=== PATIENT | male | born 1945 | race Two or more races ===

== ENCOUNTER 2020-10-24 11:50 | Emergency (ER) | payer OTHER ==
[~2020-10-24] VITALS: Ht 152.4 cm; Wt 99.8 kg
== END 2020-10-24 14:49 | disposition home or self-care (01) ==
LOC: ER 11:50
DX: R07.89 Other chest pain (principal)

== ENCOUNTER 2021-01-09 11:10 | Emergency (ER) | payer OTHER ==
[~2021-01-09] VITALS: Ht 172.7 cm; Wt 90.7 kg
[2021-01-09] MEDS ORDERED: CELEBREX100 MG PO (13:29)
[2021-01-09] MEDS ORDERED: VASOTEC2.5 MG PO (13:29)
== END 2021-01-09 13:35 | disposition home or self-care (01) ==
LOC: ER 11:10
DX: M13.88 Other specified arthritis, other site (principal); M62.838 Other muscle spasm; R51.9 Headache, unspecified

== ENCOUNTER 2022-09-15 11:28 | Emergency (ER) | payer OTHER ==
[~2022-09-15] VITALS: Ht 172.7 cm; Wt 86.2 kg
[~2022-09-15 11:28] MED LIST: CELEBREX100 MG PO; VASOTEC2.5 MG PO
[2022-09-15] MEDS ORDERED: TAMS0.4C (12:02)
[2022-09-15] MEDS ORDERED: COZAAR50 MG (12:02)
[2022-09-15] MEDS ORDERED: [UNRECOGNIZED DRUG - REMARK] (12:08)
[2022-09-15] MEDS ORDERED: ADULT LOW DOSE81 M1 (12:08)
== END 2022-09-15 19:36 | disposition home or self-care (01) ==
LOC: ER 11:28
DX: R07.89 Other chest pain (principal); I10 Essential (primary) hypertension

== ENCOUNTER 2022-11-10 07:05 | Outpatient (CLI) | payer OTHER ==
[~2022-11-10 07:05] MED LIST changes: +ADULT LOW DOSE81 M1; +COZAAR50 MG; +TAMS0.4C; +[UNRECOGNIZED DRUG - REMARK]
== END 2022-11-10 07:06 | disposition home or self-care (01) ==
LOC: NUCLEAR 07:05
PROVIDERS: ATTEND Internal Medicine
DX: I11.9 Hypertensive heart disease without heart failure (principal); I25.118 Atherosclerotic heart disease of native coronary artery with other forms of angina pectoris; E78.2 Mixed hyperlipidemia; R07.9 Chest pain, unspecified; R06.00 Dyspnea, unspecified
CPT/HCPCS: 78452; 93017; 93306; A9500; J0153

== ENCOUNTER 2023-10-31 06:43 | Emergency (ER) | payer OTHER ==
[~2023-10-31] VITALS: Ht 175.3 cm; Wt 86.2 kg
[2023-10-31] MEDS ORDERED: LOPRESSOR25 MG PO (07:18)
[2023-10-31] MEDS ORDERED: CEFTRIAXONE SODIUM 1,000 MG VIAL IM STA (07:39)
[2023-10-31] MEDS ORDERED: CEFTRIAXONE SODIUM 1,000 MG VIAL ONE (07:46)
[2023-10-31 08:35] LABS: HEMATOCRIT 39.1 % (39.0-48.0); HEMOGLOBIN 13.3 g/dL (13-16.00); MEAN CELL VOLUME 91.4 fL (80.0-100.00); MEAN CORPUSCULAR HEMOGLOBIN 31.1 pg (27.00-32.0); PLATELET COUNT 133 K/uL (150-450); RED BLOOD COUNT 4.27 M/uL (4.00-6.00); RED CELL DISTRIBUTION WIDTH 14.1 % (11.5-14.5)
[2023-10-31 09:08] LABS: ALBUMIN 3.7 gm/dL (3.4-5.0); BILIRUBIN TOTAL 0.41 mg/dL (0.3-1.2); CALCIUM 9.2 mg/dL (8.5-10.1); CREATININE SERUM 0.84 mg/dL (0.70-1.30); GFR 88.84; GLOBULINA 3.6 G/DL (2.4-3.5); POTASSIUM 3.61 mEq/L (3.5-5.1); TOTAL PROTEIN 7.3 gm/dL (6.4-8.2)
== END 2023-10-31 12:19 | disposition home or self-care (01) ==
LOC: ER 06:44
PROVIDERS: General Practice
DX: L97.929 Non-pressure chronic ulcer of unspecified part of left lower leg with unspecified severity (principal); L03.116 Cellulitis of left lower limb; I10 Essential (primary) hypertension
CPT/HCPCS: 36415; 96372; 99282; J0696

== ENCOUNTER 2024-02-17 10:53 | Emergency (ER) | payer OTHER ==
[~2024-02-17] VITALS: Ht 172.7 cm; Wt 87.1 kg
[~2024-02-17 10:53] MED LIST changes: +LOPRESSOR25 MG PO
[2024-02-17] MEDS ORDERED: CEFTRIAXONE SODIUM 1,000 MG VIAL IV STA (12:26)
[2024-02-17] MEDS ORDERED: CEFTRIAXONE SODIUM 1,000 MG VIAL ONE (12:29)
== END 2024-02-17 12:42 | disposition home or self-care (01) ==
LOC: ER 10:55
DX: I83.009 Varicose veins of unspecified lower extremity with ulcer of unspecified site (principal)
CPT/HCPCS: 96365; 99282; J0696

== ENCOUNTER 2024-02-18 10:22 | Inpatient (IN) | payer OTHER ==
[~2024-02-18] VITALS: Ht 172.7 cm; Wt 72.6 kg
--- NOTE | 2024-02-18 10:57 | NUR ---
PTE ALERTA Y ORIENTADO X3 EN COMPANIA DE FAMILIAR EL CUAL REFIERE VENIR A CAUSA DE QUE RAHMAN ESTADO PRESENTANDO ULCERA EN AREA DE [facility]. SE MIDEN S/V Y SE UBICA.
[2024-02-18] MEDS ORDERED: 0.9 % SODIUM CHLORIDE 1,000 ML IV SCH ×2 (11:15→18:00)
--- NOTE | 2024-02-18 11:22 | NUR ---
PACIENTE EVALUADO POR DR. BUCK QUIEN [place] MED[place], RN KLEIN EDUCA ACERCA DEL MISMO Y REFIERE ENTENDER. SE CANALIZA Y COLECTAN MUESTRAS DE LABORTAORIO MEDIANTE MEDIDAS ASEPTICAS.
[2024-02-18 12:23] LABS: HEMATOCRIT 38.1 % (39.0-48.0); HEMOGLOBIN 12.9 g/dL (13-16.00); MEAN CELL VOLUME 90.7 fL (80.0-100.00); MEAN CORPUSCULAR HEMOGLOBIN 30.6 pg (27.00-32.0); MEAN CORPUSCULAR HGB CONC 33.7 g/dl (32.0-36.0); PLATELET COUNT 137 K/uL (150-450); RED BLOOD COUNT 4.21 M/uL (4.00-6.00); RED CELL DISTRIBUTION WIDTH 13.9 % (11.5-14.5)
[2024-02-18 13:00] LABS: ALBUMIN 3.5 gm/dL (3.4-5.0); BILIRUBIN TOTAL 0.59 mg/dL (0.3-1.2); CALCIUM 8.9 mg/dL (8.5-10.1); CREATININE SERUM 0.95 mg/dL (0.70-1.30); GFR 77.08; GLOBULINA 3.6 G/DL (2.4-3.5); POTASSIUM 3.95 mEq/L (3.5-5.1); TOTAL PROTEIN 7.1 gm/dL (6.4-8.2)
[2024-02-18] MEDS ORDERED: VANCOMYCIN HCL 1,000 MG VIAL IV ONE (13:30)
[2024-02-18] MEDS ORDERED: VANCOMYCIN HCL 1,000 MG VIAL ONE ×2 (13:31→13:36)
--- NOTE | 2024-02-18 15:06 | NUR ---
SE RECIBE PTE ALERTA Y ORIENTADO X3. EN FERNY BAJA CON BARANDAS ELEVADAS POR SEGURIDAD. CANALIZACION PATENTE, NEHEMIAS DE EDEMA Y ERITEMA, RECIBIENDO IV FLUIDS. PEND CONSULTA CON DR ABDULAZIZ MCGOVERN
[2024-02-18] MEDS ORDERED: CEFTRIAXONE SODIUM 2,000 MG in 0.9 % SODIUM CHLORIDE 100 ML IV SCH (18:01)
[2024-02-18] MEDS ORDERED: GABAPENTIN 300 MG CAPSULE PO SCH (18:03)
[2024-02-18] MEDS ORDERED: ACETAMINOPHEN 500 MG GEL..CAP PO PRN (18:15)
[2024-02-18] MEDS ORDERED: CEFTRIAXONE SODIUM 2,000 MG VIAL ONE (20:32)
[2024-02-18 21:07] LABS: PH,URINE 5.5 (5.0-8.0); URINE APPEARANCE Clear; URINE BACTERIA 7.5 uL (0.0-1933); URINE BILIRRUBIN Negative (NEGATIVE); URINE BLOOD Small; URINE COLOR Yellow; URINE GLUCOSE Negative (NEGATIVE); URINE KETONE Negative (NEGATIVE); URINE LEUKOCYTE Negative; URINE NITRATE Negative; URINE PROTEIN Negative (NEGATIVE); URINE RBC 17.7 uL (0.0-20.8); URINE UROBILINOGEN 0.2 E.U./dl
[2024-02-18 21:08] LABS: URINE EPITHELIAL CELLS 0.6 uL (0.0-38.8); URINE WBC 1.5 uL (0.0-23.2)
[2024-02-18 21:14] LABS: INR 1.06; PROTHROMBIN TIME 11.5 SECONDS (9.0-11.5)
[2024-02-19 01:00] VITALS: BP 160/87
[2024-02-19 08:16] VITALS: BP 142/83; O2SAT 96
[2024-02-19] MEDS ORDERED: LOSARTAN POTASSIUM 50 MG TABLET PO SCH (09:00)
[2024-02-19] MEDS ORDERED: FAMOTIDINE/PF 20 MG in 0.9 % SODIUM CHLORIDE 8 ML IV PUSH SCH (09:00)
[2024-02-19] MEDS ORDERED: ENOXAPARIN SODIUM 40 MG/0.4 ML SYRINGE SUBCUTANEO SCH (09:00)
[2024-02-19] MEDS ORDERED: VANCOMYCIN HCL 1,000 MG VIAL IV SCH ×2 (09:00→21:00)
[2024-02-19 11:10] VITALS: BP 153/84; O2SAT 99
[2024-02-19] MEDS ORDERED: METRONIDAZOLE/SODIUM CHLORIDE 500 MG/100 ML PIGGYBACK IV SCH (12:00)
[2024-02-19 16:26] VITALS: BP 159/84; O2SAT 100
[2024-02-19] MEDS ORDERED: LACTOBACILLUS ACIDOPHILUS 1 CAP CAP PO SCH (17:00)
[2024-02-19 21:24] VITALS: BP 122/68
[2024-02-20 08:45] VITALS: BP 124/70; O2SAT 94
[2024-02-20 16:00] VITALS: BP 136/75; O2SAT 95
[2024-02-21 01:40] VITALS: BP 164/80; O2SAT 97
[2024-02-21 09:11] VITALS: BP 148/84; O2SAT 97
[2024-02-21] MEDS ORDERED: METROnidazole 500 MG TABLET PO SCH (18:00)
[2024-02-21 18:49] VITALS: BP 160/77; O2SAT 96
[2024-02-21] MEDS ORDERED: VANCOMYCIN HCL 5 MG/ML REDILUIDO IV SCH (21:00)
[2024-02-22 02:09] VITALS: BP 132/80; O2SAT 92
[2024-02-22 07:00] LABS: HEMOGLOBIN 12.5 g/dL (13-16.00); MEAN CELL VOLUME 88.2 fL (80.0-100.00); MEAN CORPUSCULAR HEMOGLOBIN 30.6 pg (27.00-32.0); MEAN CORPUSCULAR HGB CONC 34.7 g/dl (32.0-36.0); RED BLOOD COUNT 4.08 M/uL (4.00-6.00); RED CELL DISTRIBUTION WIDTH 13.9 % (11.5-14.5)
[2024-02-22 07:02] LABS: PLATELET COUNT 124 K/uL (150-450)
[2024-02-22 07:06] LABS: ERYTHROCYTE SEDIMENTATION RATE 18 mm/hr
[2024-02-22 08:32] VITALS: BP 185/94; O2SAT 98
[2024-02-22 17:24] VITALS: BP 157/84; O2SAT 95
[2024-02-22] MEDS ORDERED: INTESTINEX680 M1 PO (18:40)
[2024-02-22] MEDS ORDERED: COZAAR50 MG PO (18:40)
[2024-02-22] MEDS ORDERED: TAMS0.4C PO (18:40)
[2024-02-22] MEDS ORDERED: AMOX-CLAV 875-1 EAC1 PO (18:40)
[2024-02-22] MEDS ORDERED: PEPCID AC20 MG PO (18:40)
[2024-02-22] MEDS ORDERED: ADULT LOW DOSE81 M1 PO (18:40)
[2024-02-22] MEDS ORDERED: GABAPENTIN300 MG PO (18:40)
[2024-02-22] MEDS ORDERED: LOPRESSOR25 MG PO (18:40)
== END 2024-02-22 20:01 | DRG 300 ==
LOC: ER 10:24 → MEDI 19:03
PROVIDERS: General Practice; ADMIT Internal Medicine; ATTEND Internal Medicine
PROC: B54CZZZ Ultrasonography of Left Lower Extremity Veins (ICD-10-PCS; principal; 2024-02-18)
PROC: B44GZZZ Ultrasonography of Left Lower Extremity Arteries (ICD-10-PCS; 2024-02-18)
DX: I83.028 Varicose veins of left lower extremity with ulcer other part of lower leg (principal); L97.829 Non-pressure chronic ulcer of other part of left lower leg with unspecified severity; I87.2 Venous insufficiency (chronic) (peripheral); I70.202 Unspecified atherosclerosis of native arteries of extremities, left leg; B95.61 Methicillin susceptible Staphylococcus aureus infection as the cause of diseases classified elsewhere; I10 Essential (primary) hypertension

== ENCOUNTER 2024-11-28 09:54 | Inpatient (IN) | payer OTHER ==
[~2024-11-28] VITALS: Ht 175.3 cm; Wt 90.7 kg
[~2024-11-28 09:54] MED LIST changes: +ADULT LOW DOSE81 M1 PO; +AMOX-CLAV 875-1 EAC1 PO; +COZAAR50 MG PO; +GABAPENTIN300 MG PO; +INTESTINEX680 M1 PO; +PEPCID AC20 MG PO; +TAMS0.4C PO
--- NOTE | 2024-11-28 10:15 | NUR ---
PTE ALERTA Y ORIENTADO X3 REFIERE TENER ULCERA EN LA ESPINILLA, MAS UN REFERIDO GABEFLY SAAVEDRA, SE SOFIA SV MAS SE UBICA EN CAMA 07 CON BARRANDAS ELEVADAS.
[2024-11-28] MEDS ORDERED: CIPROFLOXACIN IN 5 % DEXTROSE 400 MG/200 ML PIGGYBAG IV ONE ×2 (11:41→11:45)
--- NOTE | 2024-11-28 12:00 | NUR ---
PTE EVALUADO POR EL DR. COURTNEY. SE ORIENTA SOBRE TRATAMIENTO, VERBALIZA ENTENDER. SE CANALIZA, SE COLECTA MUESTRAS DE LAB Y SE ADMINISTRA MEDICAMENTO TERESA ORDEN MEDICA BAJO MEDIDAS ASEPTICAS. SE NOTIFICA XRAY.
[2024-11-28 12:18] LABS: BASO % 0.7 % (0.1-1.2); EOS # 0.14 (0.04-0.54); EOS % 3.3 % (0.7-7.0); LYMPH # 0.80 (1.18-3.74); LYMPH % 19.1 % (19.3-53.1); MEAN PLATELET VOLUME 11.40 fl (9.4-12.4); MONO # 0.35 (0.24-0.82); MONO % 8.4 % (4.7-12.5); NEUT # 2.85 (1.56-6.13); NEUT % 68.3 % (34.0-71.1); RED CELL DISTRIBUTION WIDTH 13.0 % (11.6-14.4)
[2024-11-28 12:22] LABS: URINE APPEARANCE Clear; URINE BILIRRUBIN Negative (NEGATIVE); URINE BLOOD Trace; URINE COLOR Yellow; URINE GLUCOSE Negative (NEGATIVE); URINE KETONE Negative (NEGATIVE); URINE LEUKOCYTE Negative; URINE NITRATE Negative; URINE PROTEIN Negative (NEGATIVE); URINE UROBILINOGEN 0.2 E.U./dl
[2024-11-28 12:26] LABS: URINE BACTERIA 37.9 uL (0.0-1933); URINE EPITHELIAL CELLS 2.3 uL (0.0-38.8); URINE RBC 6.9 uL (0.0-20.8); URINE WBC 3.6 uL (0.0-23.2)
[2024-11-28 12:29] LABS: URINE CAST 0.14 uL (0.0-1.40)
[2024-11-28 12:50] LABS: ALT/SGPT 31.0 U/L (12-78); AST/SGOT 20.0 U/L (15-37); BILIRUBIN TOTAL 0.53 mg/dL (0.3-1.2); BUN CREA RATIO 19.0 (7.0-25.0); CREATININE SERUM 1.01 mg/dL (0.70-1.30); GFR 71.63; GLOBULINA 3.6 G/DL (2.4-3.5); GLUCOSE FASTING 138.0 mg/dL (65-100); OSMOLALITY SERUM 293.0 MOSM/KG (275-295)
[2024-11-28] MEDS ORDERED: VANCOMYCIN HCL 1,000 MG VIAL IV SCH (17:19)
[2024-11-28] MEDS ORDERED: ENOXAPARIN SODIUM 40 MG/0.4 ML SYRINGE SUBCUTANEO SCH (17:23)
[2024-11-28] MEDS ORDERED: DEXTROSE 5 %-0.45 % SOD CHLORD 1,000 ML IV SCH (17:30)
[2024-11-28] MEDS ORDERED: TAMSULOSIN HCL 0.4 MG CAP PO SCH (17:36)
[2024-11-28] MEDS ORDERED: METOPROLOL TARTRATE 25 MG TABLET PO SCH (17:36)
[2024-11-28] MEDS ORDERED: LOSARTAN POTASSIUM 50 MG TABLET PO SCH (17:36)
[2024-11-28] MEDS ORDERED: FAMOTIDINE/PF 20 MG in 0.9 % SODIUM CHLORIDE 8 ML IV PUSH SCH (17:36)
[2024-11-28] MEDS ORDERED: KETOROLAC TROMETHAMINE 30 MG VIAL IV PRN (17:45)
[2024-11-28] MEDS ORDERED: MEROPENEM 500 MG in 0.9 % SODIUM CHLORIDE 50 ML IV SCH (18:00)
[2024-11-28] MEDS ORDERED: TAMSULOSIN HCL 0.4 MG CAP PO ONE (18:41)
[2024-11-28] MEDS ORDERED: FAMOTIDINE/PF 20 MG/2 ML VIAL ONE (18:42)
[2024-11-28] MEDS ORDERED: ENOXAPARIN SODIUM 40 MG/0.4 ML SYRINGE SUBCUTANEO ONE (18:45)
[2024-11-28 18:47] LABS: INR 1.06
[2024-11-28 20:06] VITALS: BP 150/80; O2SAT 99
[2024-11-28 21:59] VITALS: BP 133/90
[2024-11-29 01:33] VITALS: BP 150/78; O2SAT 96
[2024-11-29] MEDS ORDERED: VANCOMYCIN HCL 1,000 MG VIAL IV SCH (05:00)
[2024-11-29 07:00] VITALS: BP 120/73; BP 131/80; O2SAT 100; O2SAT 90
[2024-11-29 07:54] LABS: BASO % 1.1 % (0.1-1.2); EOS # 0.31 (0.04-0.54); EOS % 8.2 % (0.7-7.0); LYMPH # 0.86 (1.18-3.74); LYMPH % 22.7 % (19.3-53.1); MEAN PLATELET VOLUME 11.60 fl (9.4-12.4); MONO # 0.42 (0.24-0.82); MONO % 11.1 % (4.7-12.5); NEUT # 2.15 (1.56-6.13); NEUT % 56.6 % (34.0-71.1); RED CELL DISTRIBUTION WIDTH 12.8 % (11.6-14.4)
[2024-11-29] MEDS ORDERED: CEFEPIME HCL 2,000 MG in 0.9 % SODIUM CHLORIDE 100 ML IV SCH (17:00)
[2024-11-29] MEDS ORDERED: VANCOMYCIN HCL 5 MG/ML REDILUIDO IV SCH (17:00)
[2024-11-29 18:11] VITALS: BP 139/64; O2SAT 98
[2024-11-30 01:29] VITALS: BP 190/71; O2SAT 96
[2024-11-30 03:02] VITALS: BP 125/70
[2024-11-30 07:00] VITALS: BP 151/80; O2SAT 95
[2024-11-30 08:09] LABS: BASO % 1.2 % (0.1-1.2); EOS # 0.29 (0.04-0.54); EOS % 9.0 % (0.7-7.0); LYMPH # 0.67 (1.18-3.74); LYMPH % 20.8 % (19.3-53.1); MEAN PLATELET VOLUME 12.30 fl (9.4-12.4); MONO # 0.37 (0.24-0.82); MONO % 11.5 % (4.7-12.5); NEUT # 1.84 (1.56-6.13); NEUT % 57.2 % (34.0-71.1); RED CELL DISTRIBUTION WIDTH 12.9 % (11.6-14.4)
[2024-11-30 08:50] LABS: BUN CREA RATIO 23.0 (7.0-25.0); CREATININE SERUM 0.75 mg/dL (0.70-1.30); GFR 100.98; GLUCOSE FASTING 117.0 mg/dL (65-100); OSMOLALITY SERUM 291.0 MOSM/KG (275-295)
[2024-11-30 16:00] VITALS: BP 186/100; O2SAT 95
[2024-11-30 21:00] VITALS: BP 160/70
[2024-11-30] MEDS ORDERED: ENALAPRILAT DIHYDRATE 1.25 MG/ML VIAL IV PRN (21:15)
[2024-11-30] MEDS ORDERED: ACETAMINOPHEN 500 MG GEL..CAP PO PRN (21:15)
[2024-12-01 01:56] VITALS: BP 160/80; O2SAT 96
[2024-12-01 10:05] VITALS: BP 146/73; O2SAT 98
[2024-12-01 11:25] LABS: BASO % 1.2 % (0.1-1.2); EOS # 0.34 (0.04-0.54); EOS % 7.8 % (0.7-7.0); LYMPH # 0.77 (1.18-3.74); LYMPH % 17.7 % (19.3-53.1); MEAN PLATELET VOLUME 11.60 fl (9.4-12.4); MONO # 0.51 (0.24-0.82); MONO % 11.8 % (4.7-12.5); NEUT # 2.66 (1.56-6.13); NEUT % 61.3 % (34.0-71.1); RED CELL DISTRIBUTION WIDTH 13.0 % (11.6-14.4)
[2024-12-01] MEDS ORDERED: LACTOBACILLUS ACIDOPHILUS 1 CAP CAP PO SCH (17:00)
[2024-12-01] MEDS ORDERED: MUPIROCIN 15 GM OINT..GM TUBE NASAL SCH (17:00)
[2024-12-01] MEDS ORDERED: CHLORHEXIDINE GLUCONATE 120 ML BOTTLE TOP SCH (17:00)
[2024-12-01 18:21] VITALS: BP 153/84
[2024-12-02 00:48] VITALS: BP 160/70; O2SAT 98
[2024-12-02 09:06] VITALS: BP 143/70; O2SAT 97
[2024-12-02 18:35] VITALS: BP 153/74; O2SAT 97
[2024-12-03 00:52] VITALS: BP 150/80; O2SAT 99
[2024-12-03 06:14] LABS: BASO % 1.3 % (0.1-1.2); EOS # 0.37 (0.04-0.54); EOS % 9.9 % (0.7-7.0); LYMPH # 0.85 (1.18-3.74); LYMPH % 22.8 % (19.3-53.1); MEAN PLATELET VOLUME 11.80 fl (9.4-12.4); MONO # 0.43 (0.24-0.82); MONO % 11.5 % (4.7-12.5); NEUT # 2.02 (1.56-6.13); NEUT % 54.2 % (34.0-71.1); RED CELL DISTRIBUTION WIDTH 12.8 % (11.6-14.4)
[2024-12-03 06:39] LABS: ALT/SGPT 33.0 U/L (12-78); AST/SGOT 23.0 U/L (15-37); BILIRUBIN TOTAL 0.55 mg/dL (0.3-1.2); BUN CREA RATIO 16.0 (7.0-25.0); CREATININE SERUM 0.81 mg/dL (0.70-1.30); GFR 92.4; GLOBULINA 3.0 G/DL (2.4-3.5); GLUCOSE FASTING 91.0 mg/dL (65-100); OSMOLALITY SERUM 285.0 MOSM/KG (275-295)
[2024-12-03 10:18] VITALS: BP 145/84; O2SAT 95
[2024-12-03 18:46] VITALS: BP 145/85; O2SAT 97
[2024-12-04 01:00] VITALS: BP 152/84
[2024-12-04 09:29] VITALS: BP 141/80; O2SAT 96
== END 2024-12-04 11:58 | disposition home or self-care (01) | DRG 581 ==
LOC: ER 09:54 → SEC-K 17:23 → MEDJ 18:26
PROVIDERS: Emergency Medicine; General Practice; ADMIT Student in an Organized Health Care Education/Training Program; ATTEND Student in an Organized Health Care Education/Training Program
PROC: B54CZZZ Ultrasonography of Left Lower Extremity Veins (ICD-10-PCS; 2024-11-28)
PROC: 0JDP0ZZ Extraction of Left Lower Leg Subcutaneous Tissue and Fascia, Open Approach (ICD-10-PCS; principal; 2024-12-03)
DX: L97.929 Non-pressure chronic ulcer of unspecified part of left lower leg with unspecified severity (principal); L08.9 Local infection of the skin and subcutaneous tissue, unspecified; B96.4 Proteus (mirabilis) (morganii) as the cause of diseases classified elsewhere; I10 Essential (primary) hypertension; E78.5 Hyperlipidemia, unspecified; I87.2 Venous insufficiency (chronic) (peripheral)